=== PATIENT | male | born 1985 | race African-American/Black ===

== ENCOUNTER 2016-09-13 13:21 | Emergency (ER) | payer BC ==
[~2016-09-13] VITALS: Ht 177.8 cm; Wt 104.3 kg
[~2016-09-13 13:21] MED LIST: LANTUS SOLOSTAR3 ML SUBQ; METFORMIN HCL500 M1 PO; NICOTINE TRANSD14 MG EXT; NO MEDICATIONS; NOVOLOG FL100 UNIT/1 SUBQ
== END 2016-09-13 14:08 | disposition home or self-care (01) ==
LOC: SED 13:21
DX: S05.01XA Injury of conjunctiva and corneal abrasion without foreign body, right eye, initial encounter (principal); E11.9 Type 2 diabetes mellitus without complications; E78.5 Hyperlipidemia, unspecified; F17.200 Nicotine dependence, unspecified, uncomplicated; X58.XXXA Exposure to other specified factors, initial encounter; Y92.009 Unspecified place in unspecified non-institutional (private) residence as the place of occurrence of the external cause
CPT/HCPCS: 99283